=== PATIENT | female | born 1990 ===

== ENCOUNTER 2018-04-08 16:53 | Emergency (ER) | payer BC ==
[2018-04-09 05:37] VITALS: BP 95/78; PULSE 91; RESP 16; TEMP 98.4
== END 2018-04-08 20:45 | disposition home or self-care (01) ==
LOC: H.EROB2 16:53
DX: Z02.89 Encounter for other administrative examinations (principal)

== ENCOUNTER 2018-05-14 17:26 | Emergency (ER) | payer BC ==
[2018-05-14] MEDS ORDERED: Lactated Ringer's 1,000 ML IV SCH (18:00)
[2018-05-14 18:06] VITALS: BMI 29.6
[2018-05-14 18:34] LABS: BASO % 0.2 % (0.0-2.0); EOS % 0.3 % (0.0-4.0); HEMOGLOBIN 10.9 g/dL (12.0-16.0); LYMPH # 1.5 K/uL (1.0-4.3); LYMPH % 15.2 % (20.0-40.0); MEAN CELL VOLUME 84.5 fl (81.0-99.0); MEAN CORPUSCULAR HEMOGLOBIN 29.6 pg (27.0-31.0); MEAN PLATELET VOLUME 8.3 fl (7.2-11.7); MONO # 0.5 K/uL (0.0-0.8); MONO % 4.9 % (0.0-10.0); NEUT % 79.4 % (50.0-75.0); RBC 3.69 Mil/uL (3.80-5.20); RED CELL DISTRIBUTION WIDTH 12.7 % (11.5-14.5); WHITE BLOOD COUNT 10.1 K/uL (4.8-10.8)
[2018-05-14 18:51] LABS: ALB/GLOB RATIO 1.1 (1.0-2.1); ALBUMIN 3.6 g/dL (3.5-5.0); ALT/SGPT 24 U/L (9-52); AST/SGOT 26 U/L (14-36); BLOOD UREA NITROGEN 10 mg/dl (7-17); CALCIUM 8.8 mg/dL (8.4-10.2); GFR NON-AFRICAN AMERICAN > 60; LIPASE 139 U/L (23-300)
[2018-05-15 04:25] VITALS: BP 111/63; PULSE 78; O2SAT 100
--- NOTE | 2018-05-15 11:20 | OBHP ---
Datetime: 05/14/2018 18:00 IP Adm Impression: , intrauterine ; No Active Labor; Intact Membranes IP Admit Plan: Observation/Evaluation Admit Comment, IP Provider: 28 iup 32w c/o bruing in abd. Had one epdisode of N/V. Lb ibarra. She called Dr Garnett who tolde her to come in. No CTX; no VB; +FM PNC; chart rev'd PMH denies PSH C/S NKA POBGYNH C/S x1 TOPx1 ; HPV PFH: mother and father HTN A: IUP at 32wabd pain PLAN: Discussed ith pt and PMD: check labs; IVF Extremities - PN: Normal Abdomen - PN: Normal Back - PN: Normal Lungs - PN: Normal Heart - PN: Normal Thyroid - PN: Normal Neurologic - PN: Normal HEENT - PN: Normal General - PN: Normal Contraction Comments Provider: none IP Hx Assessment: The History has been Reviewed and is Current EGA AdmitDate IP: 32.2 IP Chief Complaint: Other FHR Category Provider Fetus A: Category I Genitourinary Exam: Normal
--- NOTE | 2018-05-15 11:23 | OBDCSUM ---
Datetime: 05/14/2018 19:10 Discharge Comment, Provider: julienne Renteria contacted that pt will be discharged home Discharge Diagnosis Prov Other: huein- nancy
== END 2018-05-15 11:23 | disposition home or self-care (01) ==
LOC: H.EROB2 17:26
DX: O26.93 Pregnancy related conditions, unspecified, third trimester (principal); R10.2 Pelvic and perineal pain; Z3A.32 32 weeks gestation of pregnancy; Z87.59 Personal history of other complications of pregnancy, childbirth and the puerperium

== ENCOUNTER 2018-07-02 06:16 | Inpatient (IN) | payer BC ==
[2018-07-02] MEDS ORDERED: AMPicillin 2 GM in Sodium Chloride 0.9% 100 ML IVPB ONE (06:31)
[2018-07-02] MEDS: Lactated Ringer's 1,000 ML IV ONE ×2 (06:40→09:00)
[2018-07-02 06:43] VITALS: BMI 29.5
[2018-07-02] MEDS ORDERED: OXYTOCIN/0.9 % NS 20 UNIT/1,000 ML BAG IV ONE (06:49)
[2018-07-02] MEDS ORDERED: Oxytocin 30 UNIT in NS 500 ml 30 UNITS/500 ML BAG IV ONE (06:49)
[2018-07-02 07:08] LABS: BASO % 0.5 % (0.0-2.0); EOS % 0.7 % (0.0-4.0); LYMPH # 1.9 K/uL (1.0-4.3); LYMPH % 32.6 % (20.0-40.0); MEAN CELL VOLUME 84.5 fl (81.0-99.0); MEAN CORPUSCULAR HEMOGLOBIN 28.1 pg (27.0-31.0); MEAN CORPUSCULAR HGB CONC 33.3 g/dL (33.0-37.0); MEAN PLATELET VOLUME 8.7 fl (7.2-11.7); MONO # 0.5 K/uL (0.0-0.8); NEUT # 3.4 K/uL (1.8-7.0); NEUT % 58.2 % (50.0-75.0); NRBC % 0.1 % (0.0-0.0); RBC 3.92 Mil/uL (3.80-5.20); WHITE BLOOD COUNT 5.8 K/uL (4.8-10.8)
[2018-07-02 07:16] VITALS: PULSE 80
[2018-07-02] MEDS ORDERED: Bupivacaine 0.25% 300 ML in Sodium Chloride 0.9% 300 ML IS ONE ×2 (08:30→13:48)
[2018-07-02] MEDS ORDERED: ceFAZolin 2 GM in Sodium Chloride 0.9% 100 ML IVPB ONE (08:39)
[2018-07-02] MEDS ORDERED: Morphine 5 mg/10 ml preservative-free Inj(Duramorph) ONE (09:24)
[2018-07-02] MEDS ORDERED: Lidocaine 2% MPF (5 ml) Inj ONE (10:33)
--- NOTE | 2018-07-02 11:01 | OBDS ---
MATERNAL INFORMATION Estimated Blood Loss (ml): 850 Maternal Complications: None Provider Comments: see dictated surgeons note LABOR SUMMARY EDC: 07/07/2018 00:00 No. Babies in Womb: 1 LABOR INFORMATION Reason for Induction: Not Applicable Group B Beta Strep: Positive (Annotations: PER ) Steroids Given: None Reason Steroids Not Administered: Not Applicable VAGINAL DELIVERY Episiotomy: None Laceration Extension: N/A Laceration Type: None Laceration Repair: Not Applicable Sponge Count Correct: No Sharps Count Correct: Yes Count Comment: count correct x3 CSECTION DELIVERY Primary Indication: Repeat Elective Elective: Elective CSection Incision: Lower Uterine Transverse Uterine Closure: Double-layer closure
--- NOTE | 2018-07-02 11:01 | OBADHP ---
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
[2018-07-02] MEDS ORDERED: Oxycodone/Acetaminophen 5/325 mg Tab PO PRN ×2 (11:03→13:48)
[2018-07-02] MEDS: ceFAZolin 1 GM in Sodium Chloride 0.9% 100 ML IVPB SCH (16:54)
[2018-07-02] MEDS ORDERED: ceFAZolin 1 GM in Sodium Chloride 0.9% 100 ML IVPB SCH (17:00)
--- NOTE | 2018-07-02 21:53 | OP ---
PROCEDURE DATE: 07/02/2018 PREOPERATIVE DIAGNOSES: 1. at term. 2. Previous section. POSTOPERATIVE DIAGNOSES: 1. at term. 2. Previous section. PROCEDURE: Repeat low-transverse segment section. SURGEON: Eusebio Garnett MD BOTTLE ASSEMBLER: Dr. Capps. Dr. Capps was present during the entire duration of the case, financial services assistant needed in positioning the patient, opening up the abdomen, delivery of the baby and closure of the abdomen. ANESTHESIA USED: Spinal. ANESTHESIOLOGIST: Dell Rao MD ESTIMATED BLOOD LOSS: 850 mL. DRAINS USED: None. REPLACEMENTS USED: None. FINDINGS: 1. Delivered a living baby girl. Baby appears term. Baby cried spontaneously. Pediatrist in attendance. score of 9 and 9. 2. Amniotic fluid clear. 3. Placenta complete and intact. 4. Both tubes and ovaries appear grossly within normal limits to inspection bilaterally. DESCRIPTION OF PROCEDURE: The patient was taken to the operating room and placed on the operating room table in a supine position. After induction of spinal anesthesia, the patient was then replaced in a supine position. Venodyne boots were applied to both legs and a Cool catheter was then inserted into the bladder, was draining clear fluid. At this time anesthesia was tested and found to be well secured. The abdomen was then draped and prepped in the usual sterile manner. Following this, a Pfannenstiel incision was then made using sharp dissection along the edges of the previous incision. The incision was then extended down to subcutaneous tissue also using sharp dissection. Following this, we then proceeded to identify the fascia. The fascia was then entered in the midline incision, and the fascia was then extended laterally in each direction using sharp dissection. Rectus muscle was then identified, was then slit in the midline, exposing the peritoneum. The peritoneal layer was then picked up using two Pebbles clamps and retracted superiorly and then entered using sharp dissection. Incision on the peritoneum was then extended superiorly and inferiorly under direct visualization. Following this, we then proceeded to identify the bladder which was then retracted inferiorly using a Burleson retractor. The low transverse segment of the uterus was then identified and the visceral peritoneum covering this area was then entered using sharp dissection. Using blunt dissection, a bladder flap was then created and retracted inferiorly using the same Oscar retractor. At the low-transverse segment of the uterus, an incision was then made. Upon entering the uterine cavity, clear fluid was noted to be present. The incision was then extended laterally in each direction using bandage scissors. At this time, using the manual scooping procedure, living baby girl was then delivered. The baby appeared term, the baby cried spontaneously. It was aspirated using a bulb suction. The umbilicus was then doubly clamped and cut and the baby was handed to the pediatric personnel who was standing by. Samples of cord blood was then obtained and the placenta was then delivered complete and intact. The uterus was then exteriorized to provide better visualization. The uterine cavity was then thoroughly cleaned using moist lap pads and the uterus massaged and contracted well. Edges of the uterine incision were then secured using multiple T clamps. The uterine incision was then approximated using 0 Vicryl suture in a continuous interlocking manner. At this time, hemostasis was checked and found to be well secured. A second layer was also applied using 0 Vicryl suture in a continuous manner. Again hemostasis checked and found to be well secured. Following this, we then proceeded to approximate the bladder flap using a 2-0 rapid in a continuous manner. Following this, we then proceeded to irrigate the pelvic cavity using saline solution, All operative areas were checked, hemostatically secured, both tubes and ovaries appeared grossly within normal limits to inspection bilaterally. Following this, we then proceeded to allowing the uterus to retract back into its original position. Again all operative areas were checked, hemostatically secured. An On-Q pump catheter was then placed under direct visualization to a puncture on the right lower quadrant and placed on the low-transverse segment of the uterus area. At this time, the peritoneum was then closed using 0 Vicryl suture in a continuous manner. Rectus muscles were also approximated in the midline using several interrupted 0 Vicryl suture. Following this, second On-Q catheter was then placed on top of the muscle underneath the fascia in order to provide pain relief. Following this, we then proceeded to a exteriorized catheter through the left lower quadrant. Following this, we then proceeded to identify the fascia which was then approximated using 1 Vicryl suture in a continuous manner. Fascia was then checked and found to be free of defect. Subcutaneous tissue was then irrigated using saline solution and approximated using several interrupted 2-0 plain suture. The skin was then approximated using a 3-0 Prolene in a subcuticular fashion. Steri-Strips were then applied. On-Q pump was connected to the catheters. The patient tolerated the procedure well. There were no complications. She was transferred to the recovery room in satisfactory condition. Sponge, instrument, and needle counts were correct x3. Clear fluid was noted to be present in the Cool bag at this time. Eusebio Garnett MD
[2018-07-03] MEDS: ceFAZolin 1 GM in Sodium Chloride 0.9% 100 ML IVPB SCH ×2 (00:30→08:22)
[2018-07-03 07:26] LABS: HEMOGLOBIN 10.7 g/dL (12.0-16.0); MEAN CELL VOLUME 82.7 fl (81.0-99.0); MEAN CORPUSCULAR HEMOGLOBIN 28.1 pg (27.0-31.0); RBC 3.79 Mil/uL (3.80-5.20); WHITE BLOOD COUNT 10.7 K/uL (4.8-10.8)
[2018-07-03] MEDS: Multivitamin With Minerals Tab PO SCH (08:23)
[2018-07-03] MEDS ORDERED: Multivitamin With Minerals Tab PO SCH (09:00)
[2018-07-04] MEDS: Multivitamin With Minerals Tab PO SCH (08:40)
--- NOTE | 2018-07-04 11:31 | OBPPN ---
Datetime: 07/04/2018 11:26 PP Pain Prov: Within normal limits PP Pain Prov comment: denies SOB chest or leg pains PP Nausea Prov: Denies PP Flatus Prov: Yes PP BM Prov: No PP Nausea Prov comment: voiding well PP Breasts Prov: Normal PP Lungs Prov: Normal PP Abdomen/Uterus Prov: Abnormal PP Lochia Prov: Normal PP Vulva/Perineum Prov: Normal PP CVA Tenderness Prov: Normal PP Extremities Prov: Normal PP C/S Incision Prov: Normal PP Progress Prov: Normal PP Comments Phys Exam Prov: breast NE, breast feeding; Abd soft nd, depressible, fundus firm below the umb Incision clean and dry no active bleeding or s ign of infection; ext no calf tenderness. PP Impression Prov: Normal progression PP Plan Prov: Continue present management PP Progress Note Prov: continue po care Dulcolax suppt this pm if no bm Vital Signs Provider PP: Reviewed
--- NOTE | 2018-07-05 07:35 | OBPPN ---
Datetime: 07/05/2018 07:22 PP Pain Prov: Within normal limits PP Pain Prov comment: no SOB, chest or leg pains. PP Nausea Prov: Denies PP Flatus Prov: Yes PP BM Prov: Yes PP Breasts Prov: Normal PP Lungs Prov: Normal PP Abdomen/Uterus Prov: Abnormal PP Lochia Prov: Normal PP Vulva/Perineum Prov: Normal PP CVA Tenderness Prov: Normal PP Extremities Prov: Normal PP C/S Incision Prov: Normal PP Progress Prov: Normal PP Comments Phys Exam Prov: breast feeding, not engorged. Abd soft ND, depressible, fundus firm below the umb, incision clean and dry no suppt. no sign of i nfection. ext no calf tenderness On Q pump catheters removed in toto, tips visualized. PP Impression Prov: Normal progression PP Plan Prov: Discharge PP Progress Note Prov: D/C home with instructions and follow up office 1 wk. IP PP Procedures: None Vital Signs Provider PP: Reviewed
--- NOTE | 2018-07-05 07:37 | OBDCSUM ---
Datetime: 07/05/2018 07:33 Discharged to, Provider: Home Follow up at, Provider: Dr Garnett Disch Instr Activity: Bedrest; May be up to bathroom; May be up for meals; May Shower Disch Instr Diet: Regular Discharge Instructions, Provider: Routine instructions given Discharge Diagnosis, Provider: Term Delivered Discharge Time: 07/05/2018 07:34 Follow up in weeks, Provider: 1 wk Disch Referrals: None Contraception discussed, Prov: Yes Disch Activity Restrictions: No exercising; No lifting; No driving; Minimize walking; Minimize stair -climbing; No sexual activity; Nothing in vagina - [place], tampons, douche Discharge Comment, Provider: continue PNC vit and iron rx for Percocet given. Contraception after Delivery: Undecided
[2018-07-05] MEDS: Multivitamin With Minerals Tab PO SCH (09:08)
[2018-07-05 18:12] VITALS: BP 126/88; RESP 20; TEMP 98.1; O2SAT 100
== END 2018-07-05 12:50 | disposition home or self-care (01) | DRG 788 ==
LOC: H.EROB2 06:16 → H.L&D 06:31 → H.OB/GYN 15:51
PROVIDERS: ADMIT Specialist; ATTEND Specialist
PROC: 10D00Z1 Extraction of Products of Conception, Low, Open Approach (ICD-10-PCS; principal; 2018-07-02)
PROC: 4A1HXCZ Monitoring of Products of Conception, Cardiac Rate, External Approach (ICD-10-PCS; 2018-07-02)
DX: O34.211 Maternal care for low transverse scar from previous cesarean delivery (principal); N85.8 Other specified noninflammatory disorders of uterus; O99.824 Streptococcus B carrier state complicating childbirth; Z3A.39 39 weeks gestation of pregnancy; Z37.0 Single live birth